=== PATIENT | female | born 1990 | race Asian ===

== ENCOUNTER 2017-04-17 19:45 | Inpatient (IN) | payer OTHER ==
[2017-04-17] MEDS ORDERED: CITRIC ACID/SODIUM CITRATE 30 ML UNIT-DOSE CUP PO ONE (20:30)
[2017-04-17] MEDS ORDERED: ELECTROLYTE-148 SOLN 500 ML IV ONE (20:30)
[2017-04-17] MEDS ORDERED: ceFAZolin SODIUM 1 GM VIAL ONE (20:34)
[2017-04-17] MEDS ORDERED: morphine SULFATE/Preservative Free 0.5 MG/ML (1cc Syringe) ONE (20:34)
[2017-04-17] MEDS ORDERED: ePHEDrine SULFATE 50 MG/1 ML AMPULE ONE (20:35)
[2017-04-17 20:40] LABS: BASO % 0.5 % (0-2.0); EOS % 0.5 % (0-4.5); HEMATOCRIT 39.1 % (32.4-45.2); HEMOGLOBIN 12.7 GM/dL (10.7-15.3); LYMPH % 18.9 % (8-40); MCH 27.7 pg (25.7-33.7); MCHC 32.4 g/dl (32.0-36.0); MEAN CELL VOLUME 85.5 fl (80-96); MEAN PLT VOLUME 8.9 fl (7.5-11.1); MONO % 4.9 % (3.8-10.2); NEUT % 75.2 % (42.8-82.8); PLATELET COUNT 208 K/MM3 (134-434); RBC 4.58 M/mm3 (3.60-5.2); RDW 15.6 % (11.6-15.6); WHITE BLOOD COUNT 14.5 K/mm3 (4.0-10.0)
[2017-04-17] MEDS ORDERED: METOCLOPRAMIDE HCL INJECTION 10 MG/2 ML VIAL ONE (20:44)
[2017-04-17 20:56] LABS: ANION GAP 8 (8-16); BLOOD UREA NITROGEN 8 mg/dL (7-18); CALCIUM 8.8 mg/dL (8.5-10.1); CHLORIDE 106 mmol/L (98-107); CO2 24 mmol/L (21-32); CREATININE 0.5 mg/dL (0.55-1.02); GLUCOSE,RANDOM 57 mg/dL (74-106); POTASSIUM 4.5 mmol/L (3.5-5.1); SODIUM 138 mmol/L (136-145)
[2017-04-17] MEDS ORDERED: ELECTROLYTE-148 SOLN 1,000 ML IV SCH (21:00)
[2017-04-17 21:01] LABS: INR 0.88 (0.82-1.09); PROTHROMBIN TIME (PATIENT) 9.9 SEC (9.98-11.88)
[2017-04-17] MEDS ORDERED: OXYTOCIN 20 UNITS in 0.9% NS 20 UNIT/1,000 ML INFUS.BAG IV ONE (21:03)
[2017-04-17 21:04] LABS: ACTIVATED PTT 27.4 SECONDS (26.9-34.4)
[2017-04-17 21:40] VITALS: BMI 47.5
[2017-04-17] MEDS ORDERED: TUBERCULIN PPD 5 TU/0.1ML SYRINGE (IN PATIENT USE ONLY) ID ONE (21:45)
[2017-04-17] MEDS ORDERED: morphine SULFATE/Preservative Free 0.5 MG/ML (1cc Syringe) SPIN ONE (21:53)
[2017-04-17] MEDS ORDERED: ONDANSETRON 4 MG/2 ML VIAL IVPUSH PRN (21:53)
[2017-04-17 22:27] LABS: ARTERIAL BLOOD GAS BASE EXCESS -6.7 meq/l (-2-2); ARTERIAL BLOOD GAS PO2 20.8 mmHg (80-100)
[2017-04-17 22:30] LABS: ARTERIAL BLOOD GAS PCO2 54.2 mmHg (35-45)
--- NOTE | 2017-04-17 22:42 | HP ---
Past Medical History - Admission Chief Complaint: onset of labor History of Present Illness: 26 y/o female g1po edc 04/19/17 presented to labor and delivery c/o onset of labor antipartum coyrse has been unremarkable on evaluation she was found to have tachycardia her antepartum course has been unremarkable. 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: No: Alzheimer's, CVA, Dementia, Migraine, Multiple Sclerosis, Peripheral Neuropathy, Parkinson's, Seizure, Syncope, TIA, Vertigo, Other Cardiovascular: No: AFIB, Aneurysm, Aortic Insufficiency, Aortic Stenosis, CAD, CHF, Deep Vein Thrombosis, HTN, Hyperlipdemia, [place], Mitral Insufficiency, Mitral Stenosis, Murmur, Pulmonary Hypertension, Other Pulmonary: No: Asthma, Bronchitis, Cancer, COPD, O2 Dependent, Pneumonia, Previously Intubated, Pulmonary Embolus, Pulmonary Fibrosis, Sleep Apnea, Other Gastrointestinal: No: Ascites, Cancer, Constipation, Crohn's Disease, Diverticulitis, Diverticulosis, Esophageal Varices, Gastritis, GERD, GI Bleed, Hemorrhoids, Hiatal Hernia, Inflamatory Bowel Disease, Irritable Bowel Disease, Pancreatitis, Peptic Ulcer Disease, Ulcerative Colitis, Other Hepatobiliary: No: Cirrhosis, Cholelithiasis, Cholecystitis, Choledocholithiasis , Hepatitis A, Hepatitis B, Hepatitis C, Other Renal/: No: Renal Failure, Renal Inusuff, BPH, Cancer, Hematuria, Hemodialysis , Neurogenic Bladder, Renal Calculi, UTI, Other Reproductive: No: Ectopic , Endometriosis, Fibroids, PID, Polycystic Ovary Syndrome, Postmenopausal, Other ...: 1 ...Para: 0 ...Term: 0 ...: 0 ...Spon : 0 ...Induced : 0 ...Multiple Gestation: 0 ...LMP: 07/13/16 ... Weeks Gestation by Dates: 39.5 ...EDC by Dates: 04/19/17 ...EDC by Sono: 04/19/17 Heme/Onc: No: Anemia, B12 Deficiency, Bleeding Disorder, Cancer, Current Chemotherapy, Current Radiation Therapy, Hemochromatosis, Hypercoaguable State, Myeloproliferative Synd, Sickle Cell Disease, Sickle Cell Trait, Thrombocytopenia, Other Infectious Disease: No: AIDS, C-Diff, Herpes Zoster, HIV, MRSA, STD's, Tuberculosis, VREF, Other Psych: No: Addictions, Anxiety, Bipolar, Depression, Panic, Psychosis, Schizophrenia, Other Musculoskeletal: No: Bursitis, Chronic low back pain, Hemiparesis, Hemiplegia, Osteoarthritis, Paraplegia, Other Rheumatology: No: Fibromyalgia, Gout, Lupus, Rheumatoid Arthritis, Sarcoidosis, Vasculitis, Other ENT: No: Allergic Rhinitis, Sinusitis, Other Endocrine: No: [place]'s Disease, Ned's Disease, Diabetes Insipidus, Diabetes Mellitus, Hyperparathyroidism, Hyperthyroidism, Hypothyroidism, Osteopenia, SIADH, Other Dermatology: No: Basal Cell, Cellulitis, Eczema, Melanoma, Psoriasis, Squamous Cell, Other - Past Surgical History Past Surgical History: No: None, AAA Repair, AICD, Amputation, Appendectomy, Arthrosocopy, AV Fistula/Graft, Bariatric Surgery, Breast Biopsy, Bypass, CABG, Carotid Endarterectomy, Cataract Removal, Cholecystectomy, Colectomy, Colonoscopy, Colostomy, Craniotomy, , Cystectomy, Hernia Repair, Hysterectomy, Ileal Conduit, Ileosotomy, Joint Replacement, Kidney Transplant, Laminectomy, Liver Transplant, Mastectomy, Nephrectomy, Oopherectomy, Orchiectomy, Permanent Pacemaker, Prostatectomy, Splenectomy, Stent, Thoracotomy , TURP, Tonsillectomy, Tubal Ligation, Upper Endoscopy, Valve Replacement, Vasectomy, Vein Stripping/Ligation Hx Myomectomy: No Hx Transabdominal Cerclage: No - Smoking History Smoking history: Never smoked Have you smoked in the past 12 months: No - Alcohol/Substance Use Hx Alcohol Use: No History of Substance Use: reports: None Home Medications - Allergies Allergies/Adverse Reactions: Allergies Allergy/AdvReac Type Severity Reaction Status Date / Time No Known Allergies Allergy Verified 04/17/17 21:08 Review of Systems - Review of Systems Constitutional: reports: No Symptoms Eyes: reports: No Symptoms HENT: reports: No Symptoms Neck: reports: No Symptoms Cardiovascular: reports: No Symptoms Respiratory: reports: No Symptoms Gastrointestinal: reports: No Symptoms Genitourinary: reports: No Symptoms Breasts: reports: No Symptoms Reported Musculoskeletal: reports: No Symptoms Integumentary: reports: No Symptoms Neurological: reports: No Symptoms Endocrine: reports: No Symptoms Hematology/Lymphatic: reports: No Symptoms Psychiatric: reports: No Symptoms Physical Exam - Maternity Vital Signs: Vital Signs Temperature 98.4 F 04/17/17 21:07 Pulse Rate 119 H 04/17/17 21:07 Respiratory Rate 20 04/17/17 21:07 Blood Pressure 129/88 04/17/17 21:07 O2 Sat by Pulse Oximetry (%) Constitutional: Yes: Well Nourished, No Distress, Calm Eyes: Yes: WNL, Conjunctiva Clear HENT: Yes: WNL, Atraumatic, Normocephalic Neck: Yes: WNL, Supple, Trachea Midline Cardiovascular: Yes: WNL, Regular Rate and Rhythm Lungs: Clear to auscultation Breast(s): Yes: WNL - Abdominal Exam/OB Number of Fetuses: Single Presentation: Vertex Contractions: Yes Regularity: Regular Intensity: Mild/Mod Monitor Mode: External Heart Rate Location: [facility] Category: II Accelerations: Uniform Decelerations: Variable - Vaginal Exam/OB Vaginal Bleediing: No Speculum Exam: No Dilatation (cm): ft Effacement (%): long Amniotic Membrane Status: Leaking Amniotic Fluid: Yes: Blood Stained Meconium: Thick Presentation: Vertex/Position Station: -1 - Physical Exam Musculoskeletal: Yes: WNL Extremities: Yes: WNL Edema: No Integumentary: Yes: WNL Deep Tendon Reflex Grade: Normal +2 ...Motor Strength: WNL Psychiatric: Yes: Alert, Oriented - Labs Lab Results: CBC, BMP 04/17/17 20:25 04/17/17 20:25 Assessment/Plan iup at term non reassuring tracing thick meconium
--- NOTE | 2017-04-17 22:56 | OP ---
Operative Note - Note: Operative Date: 04/17/17 Pre-Operative Diagnosis: iup at term non reassuring tracing Operation: same as above with thick meconium Findings: normal looking tubes and ovaries , thick meconium Post-Operative Diagnosis: Other (with thick meconium) Surgeon: Birgit Roland Skiver Uppers Or Linings: Mitul Bañuelos Anesthesiologist/ORACLE EBS DEVELOPER: Luis Dunne Anesthesia: Spinal Specimens Removed: ovaries Estimated Blood Loss (mls): 500 Drains & Tubes with Location: butler to gravity Drains, Volume Out (mls): 200 Fluid Volume Replaced (mls): 1,500 Operative Report Dictated: Yes
[2017-04-17 23:07] LABS: ARTERIAL BLOOD GAS PO2 32.7 mmHg (80-100)
[2017-04-17 23:08] LABS: ARTERIAL BLD GAS O2 SATURATION QNS % (90-98.9)
[2017-04-17 23:11] LABS: ARTERIAL BLOOD GAS pH 7.17 (7.35-7.45)
[2017-04-17 23:13] LABS: ARTERIAL BLOOD GAS PCO2 67.7 mmHg (35-45)
[2017-04-17] MEDS ORDERED: IBUPROFEN 600 MG TABLET (FP) PO PRN (23:32)
[2017-04-17] MEDS ORDERED: METHYLERGONOVINE MALEATE 0.2 MG/1 ML AMP IM PRN (23:32)
[2017-04-18] MEDS ORDERED: OXYTOCIN 20 UNITS in 0.9% NS 20 UNIT/1,000 ML INFUS.BAG IV ONE ×2 (00:30)
[2017-04-18] MEDS: IBUPROFEN 800 MG/8 ML IJ IVPB PRN ×2 (01:36→10:34)
[2017-04-18 09:03] LABS: BASO % 0.4 % (0-2.0); EOS % 0.3 % (0-4.5); HEMOGLOBIN 11.4 GM/dL (10.7-15.3); LYMPH % 14.7 % (8-40); MCH 27.2 pg (25.7-33.7); MCHC 31.6 g/dl (32.0-36.0); MEAN PLT VOLUME 8.4 fl (7.5-11.1); MONO % 4.1 % (3.8-10.2); NEUT % 80.5 % (42.8-82.8); PLATELET COUNT 167 K/MM3 (134-434); RBC 4.18 M/mm3 (3.60-5.2); RDW 15.1 % (11.6-15.6); WHITE BLOOD COUNT 15.2 K/mm3 (4.0-10.0)
[2017-04-18] MEDS ORDERED: OXYTOCIN 20 UNITS in 0.9% NS 20 UNIT/1,000 ML INFUS.BAG IV SCH (10:00)
[2017-04-18] MEDS: SIMETHICONE 80 MG TAB.CHEW (FP) PO PRN ×2 (16:04→20:31)
[2017-04-18] MEDS: ACETAMINOPHEN 325 MG TABLET (FP) PO PRN ×2 (16:04→20:31)
[2017-04-18] MEDS: IBUPROFEN 600 MG TABLET (FP) PO PRN ×2 (16:04→20:31)
--- NOTE | 2017-04-18 18:57 | PN ---
Progress Note, Physician Chief Complaint: Pt ambulating and voiding, pain controlled, no anesthesia complaints. - Current Medication List Current Medications: Active Medications Acetaminophen (Tylenol -) 650 mg PO Q4H PRN PRN Reason: FEVER OR PAIN Last Admin: 04/18/17 16:04 Dose: 650 mg Bisacodyl (Dulcolax Suppository -) 10 mg RC PRN PRN PRN Reason: CONSTIPATION Diphenhydramine HCl (Benadryl Injection -) 25 mg IVPUSH Q4H PRN PRN Reason: Pruritis Parenteral Electrolytes (Plasma-Lyte 148 -) 1,000 mls @ 125 mls/hr IV ASDIR SHERYL Last Admin: 04/17/17 21:15 Dose: 125 mls/hr Oxytocin/Sodium Chloride (Normal Saline+20 Units Oxytocin -) 20 unit in 1,000 mls @ 125 mls/hr IV ASDIR ONE Stop: 04/18/17 08:29 Last Admin: 04/18/17 00:30 Dose: 125 mls/hr Ibuprofen (Motrin -) 600 mg PO Q4H PRN PRN Reason: PAIN Last Admin: 04/18/17 16:04 Dose: 600 mg Ibuprofen (Caldolor Injection -) 800 mg IVPB Q6H PRN PRN Reason: FEVER Last Admin: 04/18/17 10:34 Dose: 800 mg Methylergonovine Maleate (Methergine Injection -) 0.2 mg IM Q4H PRN PRN Reason: Excessive Bleeding (L&D) Ondansetron HCl (Zofran Injection) 4 mg IVPUSH Q4H PRN PRN Reason: NAUSEA Simethicone (Mylicon -) 80 mg PO Q4H PRN PRN Reason: GAS Last Admin: 04/18/17 16:04 Dose: 80 mg - Objective Vital Signs: Vital Signs Temperature 98.5 F 04/18/17 17:00 Pulse Rate 108 H 04/18/17 17:00 Respiratory Rate 25 H 04/18/17 17:00 Blood Pressure 112/76 04/18/17 17:00 O2 Sat by Pulse Oximetry (%) 97 04/17/17 23:40 Constitutional: Yes: Well Nourished, No Distress, Calm Musculoskeletal: Yes: WNL Neurological: Yes: WNL, Alert, Oriented ...Motor Strength: WNL Labs: CBC, BMP 04/18/17 08:45 04/17/17 20:25 INR, PTT INR 0.88 (0.82-1.09) 04/17/17 20:25 Assessment/Plan POD#1 s/p primary under spinal with duramorph. Doing well. D/C from anesthesia care.
[2017-04-18] MEDS ORDERED: BISACODYL 10 MG SUPP.RECT RC PRN (23:36)
[2017-04-19] MEDS: ACETAMINOPHEN 325 MG TABLET (FP) PO PRN ×4 (00:54→18:43)
[2017-04-19] MEDS: IBUPROFEN 600 MG TABLET (FP) PO PRN ×4 (00:54→18:42)
[2017-04-19] MEDS: SIMETHICONE 80 MG TAB.CHEW (FP) PO PRN ×3 (00:54→14:40)
--- NOTE | 2017-04-19 08:22 | PN ---
Post Progress Note Post Day: 2 Type of Delivery: Primary C/S Vital Signs: Vital Signs Temperature 99.0 F 04/18/17 20:00 Pulse Rate 110 H 04/18/17 20:00 Respiratory Rate 18 04/18/17 22:00 Blood Pressure 128/72 04/18/17 20:00 O2 Sat by Pulse Oximetry (%) 97 04/17/17 23:40 Breast Exam: Yes: Soft Uterus: Yes: Fundus Firm Incision: Yes: Sutures intact Abdomen/GI: Yes: Abdomen soft, Passing flatus Lochia: Yes: Rubra Lochia, amount: Moderate Extremities: Yes: Calves non-tender Perineum: Yes: Intact - Labs Labs: CBC WBC 15.2 K/mm3 (4.0-10.0) H 04/18/17 08:45 RBC 4.18 M/mm3 (3.60-5.2) 04/18/17 08:45 Hgb 11.4 GM/dL (10.7-15.3) D 04/18/17 08:45 Hct 36.0 % (32.4-45.2) 04/18/17 08:45 MCV 86.0 fl (80-96) 04/18/17 08:45 MCH 27.2 pg (25.7-33.7) 04/18/17 08:45 MCHC 31.6 g/dl (32.0-36.0) L 04/18/17 08:45 RDW 15.1 % (11.6-15.6) 04/18/17 08:45 Plt Count 167 K/MM3 (134-434) 04/18/17 08:45 MPV 8.4 fl (7.5-11.1) 04/18/17 08:45 Neutrophils % 80.5 % (42.8-82.8) 04/18/17 08:45 Lymphocytes % 14.7 % (8-40) D 04/18/17 08:45 Monocytes % 4.1 % (3.8-10.2) 04/18/17 08:45 Eosinophils % 0.3 % (0-4.5) 04/18/17 08:45 Basophils % 0.4 % (0-2.0) 04/18/17 08:45 Assessment/Plan doing well on 2nd post op dayencourage ambulatiocontinue post op care.
[2017-04-20] MEDS: ACETAMINOPHEN 325 MG TABLET (FP) PO PRN ×4 (03:25→22:20)
[2017-04-20] MEDS: IBUPROFEN 600 MG TABLET (FP) PO PRN ×4 (03:25→22:20)
[2017-04-20] MEDS: SIMETHICONE 80 MG TAB.CHEW (FP) PO PRN ×4 (03:25→22:21)
[2017-04-20 09:52] LABS: BASO % 0.2 % (0-2.0); EOS % 1.5 % (0-4.5); HEMATOCRIT 32.3 % (32.4-45.2); HEMOGLOBIN 10.2 GM/dL (10.7-15.3); LYMPH % 13.7 % (8-40); MCH 27.6 pg (25.7-33.7); MCHC 31.7 g/dl (32.0-36.0); MEAN CELL VOLUME 87.1 fl (80-96); MEAN PLT VOLUME 7.9 fl (7.5-11.1); MONO % 2.3 % (3.8-10.2); NEUT % 82.3 % (42.8-82.8); PLATELET COUNT 199 K/MM3 (134-434); RBC 3.71 M/mm3 (3.60-5.2); RDW 15.5 % (11.6-15.6); WHITE BLOOD COUNT 14.8 K/mm3 (4.0-10.0)
--- NOTE | 2017-04-20 23:17 | PN ---
Progress Note (SOAP) - Subjective Chief Complaint: Pt doing well - Current Medications Current Medications: Active Medications Acetaminophen (Tylenol -) 650 mg PO Q4H PRN PRN Reason: FEVER OR PAIN Last Admin: 04/20/17 22:20 Dose: 650 mg Bisacodyl (Dulcolax Suppository -) 10 mg RC PRN PRN PRN Reason: CONSTIPATION Diphenhydramine HCl (Benadryl Injection -) 25 mg IVPUSH Q4H PRN PRN Reason: Pruritis Parenteral Electrolytes (Plasma-Lyte 148 -) 1,000 mls @ 125 mls/hr IV ASDIR SHERYL Last Admin: 04/17/17 21:15 Dose: 125 mls/hr Ibuprofen (Motrin -) 600 mg PO Q4H PRN PRN Reason: PAIN Last Admin: 04/20/17 22:20 Dose: 600 mg Ibuprofen (Caldolor Injection -) 800 mg IVPB Q6H PRN PRN Reason: FEVER Last Admin: 04/18/17 10:34 Dose: 800 mg Methylergonovine Maleate (Methergine Injection -) 0.2 mg IM Q4H PRN PRN Reason: Excessive Bleeding (L&D) Ondansetron HCl (Zofran Injection) 4 mg IVPUSH Q4H PRN PRN Reason: NAUSEA Simethicone (Mylicon -) 80 mg PO Q4H PRN PRN Reason: GAS Last Admin: 04/20/17 22:21 Dose: 80 mg - Objective Vital Signs: Vital Signs Temperature 98.7 F 04/20/17 08:09 Pulse Rate 106 H 04/20/17 08:09 Respiratory Rate 18 04/20/17 08:09 Blood Pressure 129/79 04/20/17 08:09 O2 Sat by Pulse Oximetry (%) 97 04/17/17 23:40 Constitutional: Yes: Well Nourished, No Distress Cardiovascular: Yes: WNL Respiratory: Yes: WNL ....Post : Yes: Uterus firm, Uterus non-tender Musculoskeletal: Yes: WNL Extremities: Yes: WNL Labs Lab Results: CBC, BMP 04/20/17 09:49 04/17/17 20:25 Assessment/Plan SP CS POD 3 Plan DC HOme in am
[2017-04-21 00:56] VITALS: PULSE 102
[2017-04-21] MEDS: ACETAMINOPHEN 325 MG TABLET (FP) PO PRN ×2 (06:28→15:09)
[2017-04-21] MEDS: SIMETHICONE 80 MG TAB.CHEW (FP) PO PRN ×2 (06:28→15:10)
[2017-04-21] MEDS: IBUPROFEN 600 MG TABLET (FP) PO PRN ×2 (06:28→15:07)
--- NOTE | 2017-04-21 06:45 | PN ---
Progress Note (SOAP) - Subjective Chief Complaint: Pt doing well - Current Medications Current Medications: Active Medications Acetaminophen (Tylenol -) 650 mg PO Q4H PRN PRN Reason: FEVER OR PAIN Last Admin: 04/21/17 06:28 Dose: 650 mg Bisacodyl (Dulcolax Suppository -) 10 mg RC PRN PRN PRN Reason: CONSTIPATION Diphenhydramine HCl (Benadryl Injection -) 25 mg IVPUSH Q4H PRN PRN Reason: Pruritis Parenteral Electrolytes (Plasma-Lyte 148 -) 1,000 mls @ 125 mls/hr IV ASDIR SHERYL Last Admin: 04/17/17 21:15 Dose: 125 mls/hr Ibuprofen (Motrin -) 600 mg PO Q4H PRN PRN Reason: PAIN Last Admin: 04/21/17 06:28 Dose: 600 mg Ibuprofen (Caldolor Injection -) 800 mg IVPB Q6H PRN PRN Reason: FEVER Last Admin: 04/18/17 10:34 Dose: 800 mg Methylergonovine Maleate (Methergine Injection -) 0.2 mg IM Q4H PRN PRN Reason: Excessive Bleeding (L&D) Ondansetron HCl (Zofran Injection) 4 mg IVPUSH Q4H PRN PRN Reason: NAUSEA Simethicone (Mylicon -) 80 mg PO Q4H PRN PRN Reason: GAS Last Admin: 04/21/17 06:28 Dose: 80 mg - Objective Vital Signs: Vital Signs Temperature 98.0 F 04/20/17 22:00 Pulse Rate 102 H 04/20/17 22:00 Respiratory Rate 18 04/20/17 22:00 Blood Pressure 129/84 04/20/17 22:00 O2 Sat by Pulse Oximetry (%) 97 04/17/17 23:40 Constitutional: Yes: Well Nourished, No Distress Respiratory: Yes: WNL Gastrointestinal: Yes: WNL, Normal Bowel Sounds, Soft ....Post : Yes: Uterus firm, Uterus non-tender Breast(s): Yes: WNL Musculoskeletal: Yes: WNL Extremities: Yes: WNL Wound/Incision: Yes: Clean/Dry, Well Approximated Neurological: Yes: WNL, Alert, Oriented Labs Lab Results: CBC, BMP 04/20/17 09:49 04/17/17 20:25 Assessment/Plan SP CS POD 4 Plan DC HOme today
--- NOTE | 2017-04-21 06:48 | DS ---
Physical Exam-PUBLICITY DIRECTOR Vital Signs: Vital Signs Temperature 98.0 F 04/20/17 22:00 Pulse Rate 102 H 04/20/17 22:00 Respiratory Rate 18 04/20/17 22:00 Blood Pressure 129/84 04/20/17 22:00 O2 Sat by Pulse Oximetry (%) 97 04/17/17 23:40 Constitutional: Yes: Well Nourished, No Distress Neck: Yes: WNL Cardiovascular: Yes: WNL Respiratory: Yes: WNL Gastrointestinal: Yes: WNL, Normal Bowel Sounds, Soft ....Post : Yes: Uterus firm, Uterus non-tender Breast(s): Yes: WNL Musculoskeletal: Yes: WNL Extremities: Yes: WNL Edema: No Wound/Incision: Yes: Clean/Dry, Well Approximated Neurological: Yes: WNL, Alert, Oriented Labs: CBC, BMP 04/20/17 09:49 04/17/17 20:25 Delivery - Delivery Type of Anesthesia: Spinal Episiotomy/Laceration: None EBL (cc): 500 Delivery, Single - Stages of Labor Date 1st Stage Initiatied: 04/17/17 Time 1st Stage Initiated: 16:30 Date of Delivery: 04/17/17 Time of Delivery: 21:39 Time Placenta Delivered: 21:40 - Condition of Infant Sterilization Tech/Fleet Manager Present: Yes Name: Paul Rodney Infant Gender: Male Weight: 8 lb 4 oz Position: Left, OP Total Hours ROM (Hrs/Mins): 2h 10m - 1 Minute Total Score: 7 5 Minutes Total Score: 8 - Feeding Plan Initial Plan: Elected not to breastfeed exclusively throughout hospitalization Discharge Summary Reason For Visit: LABOR ADMIT intolerance to labor Procedures: Principal: Low Transverse Section Hospital Course: unremarkable Condition: Good - Instructions Diet, Activity, Other Instructions: Physical activity Resume your normal everyday activity as tolerated no heavy lifting or exercise until seen by your surgeon. You may walk unlimited ricky of and climb stairs. You may resume driving the car when you feel safe and comfortable behind the wheel. No sexual activity as instructed. Wound care If you have a bandage, leave it on, and keep dry for 48-72 hours. After that time discard the outer bandage. If they are tapes on the skin under the out of bandage leave them in place. They will peel off in the next 7 to 10 days. Do Not Peel them off. You may shower the day after surgery. If there are tapes present on the skin, you may shower over them. Diet There are no dietary restrictions. Eat healthy, high-fiber foods. Drink 6 to 8 glasses of liquid each day. This will assist in keeping your bowels are regular. Pain management You may take Tylenol or acetaminophen or Ibuprofen (for example, Motrin, Advil etc.) from my pain prescription medication is ordered should be taken as prescribed for moderate to severe pain. Call MD for any of the following: Severe pain not relieved by medication Fever of 101 or higher Excessive bleeding or drainage on dressing Inability to urinate Disposition: HOME - Home Medications Comprehensive Discharge Medication List: Ambulatory Orders Multi Tablet 1 tab PO DAILY 04/17/17 Ibuprofen [Motrin -] 600 mg PO QID PRN #28 tablet 04/21/17
[2017-04-21 08:24] VITALS: BP 115/76; TEMP 98.7
--- NOTE | 2017-04-22 13:21 | PATH ---
Surgical Pathology Report Patient Name: JUNIOR BUCKNER Med. Rec. #: [id number] /Age/Gender: 1990 (Age: 26) / F Account: [id number] Location: [facility] OBS/HOUSEKEEPER HEAD Taken: 04/17/2017 Received: 04/20/2017 Reported: 04/22/2017 Physicians: Birgit Maza Specimen(s) Received PLACENTA Clinical History , 39.5 weeks gestation Obese, PROM? Primary for nonreassuring heart rate Final Diagnosis PLACENTA, DELIVERY: FRAGMENTED THIRD TRIMESTER PLACENTA WITH ACUTE CHORIOAMNIONITIS AND MECONIUM HISTIOCYTOSIS OF MEMBRANES, INFARCT WITH ASSOCIATED CALCIFICATION, AND 3 VESSEL UMBILICAL CORD WITH ACUTE FUNISITIS. Electronically Signed Kyle Astorga M.D. Gross Description Received fresh labeled "placenta," is a 633 g, 21.0 x 14.0 x 3.3 cm aggregate of multiple portions of a markedly fragmented placenta. The membranes are cloud green, meconium stained, translucent with focal opacities and appear to have inserted marginally. The umbilical cord measures 25 cm in length and averages 1.1 cm in diameter. The cord inserts eccentrically, 2.5 cm to the nearest margin. No true knots or strictures are identified. Cut surface of the umbilical cord reveals 3 vessels. The surfaces are capps green, meconium stained with moderate fibrin deposition and appropriate caliber vessels. The maternal surfaces are red-brown, markedly fragmented and disrupted. Sectioning reveals 2 cloud, firm intraparenchymal lesions averaging 2.2 cm in greatest dimension. The remaining placental parenchyma is red-brown and spongy. Sanitation Truck Cleaner sections are submitted in 4 cassettes as follows: 1-membrane rolls and umbilical cord; 2-3-lesions; 4-additional full thickness section of placenta. /04/21/2017 saudi04/21/2017
== END 2017-04-21 16:50 | disposition home or self-care (01) | DRG 540 ==
LOC: JLDR 19:45 → J3W 04-18 00:41
PROVIDERS: ADMIT Obstetrics & Gynecology; ATTEND Obstetrics & Gynecology
PROC: 10D00Z1 Extraction of Products of Conception, Low, Open Approach (ICD-10-PCS; principal; 2017-04-17)
DX: O76 Abnormality in fetal heart rate and rhythm complicating labor and delivery (principal); O77.0 Labor and delivery complicated by meconium in amniotic fluid; Z3A.39 39 weeks gestation of pregnancy; Z37.0 Single live birth
CPT/HCPCS: 36415; 36600; 80048; 82803; 85025; 85610; 85730; 86593; 86850; 86900; 86901; 87389; 88307-TC

== ENCOUNTER 2020-07-06 19:18 | Emergency (ER) | payer OTHER ==
[2020-07-06 19:31] VITALS: BP 153/89; PULSE 83; TEMP 98.2; BMI 47.2
== END 2020-07-06 20:40 | disposition home or self-care (01) ==
LOC: JERFT 19:18 → JER 19:18 → JERFT 20:40
DX: H66.92 Otitis media, unspecified, left ear (principal)
CPT/HCPCS: 99283-25

== ENCOUNTER 2022-04-24 12:34 | Emergency (ER) | payer OTHER ==
[2022-04-24 12:43] VITALS: BP 130/74; PULSE 74; RESP 18; TEMP 98.2; BMI 46.0
[2022-04-24] MEDS ORDERED: ACETAMINOPHEN 500 MG TABLET (FP) PO ONE (13:54)
[2022-04-24] MEDS ORDERED: ACETAMINOPHEN 325 MG TABLET (FP) ONE (14:03)
== END 2022-04-24 14:38 | disposition home or self-care (01) ==
LOC: JERFT 12:34
DX: R51.9 Headache, unspecified (principal)
CPT/HCPCS: 99283-25